=== PATIENT | female | born 1950 | race Caucasian/White ===

== ENCOUNTER 2017-09-14 17:13 | Emergency (ER) | payer OTHER ==
[~2017-09-14 17:13] MED LIST: ALBU6.7H INH; ALPR0.25 PO; AMLO5 PO; ASPI81 PO; BENZ100 PO; MEDR4PAK3 PO; METO50CR PO; OMEP20TA PO; SULCRAFATE PO; ZITH250T PO
[2017-09-14 17:15] VITALS: BP 76/53; PULSE 80; RESP 18; TEMP 97.6; O2SAT 92
--- NOTE | 2017-09-14 17:38 | PD ---
HPI Chief Complaint: abdominal pain and diarrhea Time Seen by Provider: 17:22 Travel History International Travel<30 days: No Contact w/Intl Traveler<30days: No Traveled to known affect area: No History of Present Illness HPI The patient was seen and examined in the presence of the nurse. Patient arrives hypotensive and critically ill. She complains of abdominal pain of one day duration. Location is bilateral lower quadrants. She had a large episode of diarrhea. He became pale and diaphoretic. Paramedics were called. She was brought in hypotensive with a blood pressure of 76 systolic. She denies fever or vomiting but complains of nausea. Denies history of colitis or C. difficile or a lot of recent antibiotics. Symptoms are severe. No alleviating factors. No exacerbating factors. PFSH Past Medical History Blood Disorders: No Heart Rhythm Problems: Yes (SVT) Cancer: Yes (ESOPHAGEAL CA) Cardiovascular Problems: Yes (SVT) Chest Pain: No COPD: Yes Diabetes: No Endocrine: No Gastrointestinal Disorders: No GERD: Yes Glaucoma: No Genitourinary: No Hepatitis: No Hiatal Hernia: No Hypertension: Yes Immune Disorder: No Musculoskeletal: Yes Neurologic: No Psychiatric: No Reproductive: No Respiratory: No Integumentary: No Immunizations Current: Yes Thyroid Disease: No Past Surgical History Abdominal Surgery: Yes (ESOPHGEALECTOMY) Appendectomy: Yes Body Medical Devices: PINS IN L ANKLE Cardiac Surgery: Yes (CARDIAC ABLATION) Section: Yes Ear Surgery: No Endocrine Surgery: No Eye Surgery: No Genitourinary Surgery: No Gynecologic Surgery: Yes (C SECTION,HYSTERECTOMY,EXCISION PHEOCHROMACYTOMA) Hysterectomy: Yes Oral Surgery: No Pacemaker: No Thoracic Surgery: No Other Surgery: Yes (L ANKLE, REMOVAL OF ESOPHAGOUS) Social History Alcohol Use: No Tobacco Use: Yes (09/16 PPD) Substance Use: No Allergies-Medications (Allergen,Severity, Reaction): Coded Allergies: codeine (Unverified Allergy, Severe, nausea and vomiting, 04/28/17) meperidine (Unverified Allergy, Severe, nausea and vomiting , 04/28/17) pt states most all pain meds except lortab diphenhydramine (Unverified Adverse Reaction, Severe, SVT, 04/28/17) PT RELATES ALLERGY TO ANTIHISTAMINES (CAUSES SVT) Reported Meds & Prescriptions Reported Meds & Active Scripts Active Tessalon Perles (Benzonatate) 100 Mg Cap 100 Mg PO TIDPRN Medrol Dosepak (Methylprednisolone) 4 Mg Candelario 4 Mg PO DIRECTED TAKE DIRECTED Zithromax Z-Candelario (Azithromycin) 250 Mg Tab 250 Mg PO DIRECTED 5 Days 500 MG (2 TABLETS) PO ON DAY 1, THEN 250 MG (1 TABLET) PO ON DAYS 2 TO 5. Proventil Hfa (Albuterol Sulfate) 6.7 Gm Aero 1-2 Puff INH Q6HPRN Reported Norvasc (Amlodipine Besylate) 5 Mg Tab 5 Mg PO BID Aspirin 81 Mg Tab 81 Mg PO DAILY Omeprazole 20 Mg Tab 20 Mg PO BID [Sulcrafate] 1 Gm PO QID Metoprolol Succinate Er (Metoprolol Succinate) 50 Mg Tab 50 Mg PO DAILY Alprazolam 0.25 Mg Tab 0.125 Mg PO HSPRN Review of Systems General / Constitutional: No: Fever Eyes: No: Visual changes HENT: No: Headaches Cardiovascular: No: Chest Pain or Discomfort Respiratory: No: Shortness of Breath Gastrointestinal: Positive: Nausea, Diarrhea, Abdominal Pain Genitourinary: No: Dysuria Musculoskeletal: No: Pain Skin: No Rash Neurologic: No: Weakness Psychiatric: No: Depression Endocrine: No: Polydipsia Hematologic/Lymphatic: No: Easy Bruising Physical Exam Narrative GENERAL: Well-nourished, well-developed patient with abdominal pain and nausea and diarrhea . SKIN: Focused skin assessment reveals no rash and nodules. Skin is Warm and dry. HEAD: Atraumatic. Normocephalic. EYES: Pupils equal and round. No scleral icterus. No injection or drainage. ENT: No nasal bleeding or discharge. Mucous membranes pink and moist. NECK: Trachea midline. No JVD. CARDIOVASCULAR: Regular rate and rhythm. No murmur appreciated. RESPIRATORY: No accessory muscle use. Clear to auscultation. Breath sounds equal bilaterally. GASTROINTESTINAL: Abdomen soft, mild bilateral lower quadrant tenderness without rebound or guarding, nondistended. Hepatic and splenic margins not palpable. MUSCULOSKELETAL: No obvious deformities. No clubbing. No cyanosis. No edema. NEUROLOGICAL: Awake and alert. No obvious cranial nerve deficits. Motor grossly within normal limits. Normal speech. PSYCHIATRIC: Appropriate mood and affect; insight and judgment normal. Data Data Last Documented VS Vital Signs Date Time Temp Pulse Resp B/P (MAP) Pulse Ox O2 Delivery O2 Flow Rate FiO2 09/14/17 19:30 101 16 129/64 (85) 95 Room Air 09/14/17 17:15 97.6 Orders Orders Complete Blood Count With Diff (09/14/17 17:31) Comprehensive Metabolic Panel (09/14/17 17:31) Lipase (09/14/17 17:31) Prothrombin Time / Inr (Pt) (09/14/17 17:31) Act Partial Throm Time (Ptt) (09/14/17 17:31) Urinalysis - C+S If Indicated (09/14/17 17:31) Ct Abd/Pel W Iv Contrast(Rout) (09/14/17 17:31) Iv Access Insert/Monitor (09/14/17 17:31) Ecg Monitoring (09/14/17 17:31) Oximetry (09/14/17 17:31) NPO (09/14/17 17:31) Ondansetron Inj (Zofran Inj) (09/14/17 17:45) Sodium Chloride 0.9% Flush (Ns Flush) (09/14/17 17:45) Sodium Chlor 0.9% 1000 Ml Inj (Ns 1000 M (09/14/17 17:45) Sodium Chlor 0.9% 1000 Ml Inj (Ns 1000 M (09/14/17 17:45) Enteric Path (Stool) (09/14/17 17:31) C Diff Toxin Pcr (09/14/17 17:31) Ct Thorax/ Chest W Iv Contrast (09/14/17 ) Sodium Chlor 0.9% 1000 Ml Inj (Ns 1000 M (09/14/17 19:15) Iohexol 350 Inj (Omnipaque 350 Inj) (09/14/17 19:07) Potassium Chloride Eff (K-Lyte Cl Eff) (09/14/17 20:00) Labs Laboratory Tests Test 09/14/17 17:35 White Blood Count 10.5 TH/MM3 Red Blood Count 5.76 MIL/MM3 Hemoglobin 15.8 GM/DL Hematocrit 49.7 % Mean Corpuscular Volume 86.2 FL Mean Corpuscular Hemoglobin 27.3 PG Mean Corpuscular Hemoglobin Concent 31.7 % Red Cell Distribution Width 14.4 % Platelet Count 294 TH/MM3 Mean Platelet Volume 8.4 FL Neutrophils (%) (Auto) 62.3 % Lymphocytes (%) (Auto) 31.5 % Monocytes (%) (Auto) 2.0 % Eosinophils (%) (Auto) 1.9 % Basophils (%) (Auto) 2.3 % Neutrophils # (Auto) 6.6 TH/MM3 Lymphocytes # (Auto) 3.3 TH/MM3 Monocytes # (Auto) 0.2 TH/MM3 Eosinophils # (Auto) 0.2 TH/MM3 Basophils # (Auto) 0.2 TH/MM3 CBC Comment DIFF FINAL Differential Comment Prothrombin Time 10.6 SEC Prothromb Time International Ratio 1.0 RATIO Activated Partial Thromboplast Time 27.8 SEC Blood Urea Nitrogen 20 MG/DL Creatinine 1.00 MG/DL Random Glucose 171 MG/DL Total Protein 6.2 GM/DL Albumin 2.9 GM/DL Calcium Level 8.9 MG/DL Alkaline Phosphatase 103 U/L Aspartate Amino Transf (AST/SGOT) 28 U/L Alanine Aminotransferase (ALT/SGPT) 14 U/L Total Bilirubin 0.3 MG/DL Sodium Level 141 MEQ/L Potassium Level 3.0 MEQ/L Chloride Level 105 MEQ/L Carbon Dioxide Level 23.7 MEQ/L Anion Gap 12 MEQ/L Estimat Glomerular Filtration Rate 55 ML/MIN Lipase 328 U/L MDM Medical Decision Making Medical Screen Exam Complete: Yes Emergency Medical Condition: Yes Medical Record Reviewed: Yes Differential Diagnosis C. difficile , hypovolemic shock, colitis Narrative Course I have reviewed the patient's electronic medical record. Patient arrives critically ill and hypotensive. 18-gauge placed in the left wrist by nursing staff I placed a 20-gauge right external jugular IV I gave her 2 L normal saline IV bolus and will reassess pressure after that CBC shows normal white cell count metabolic profile shows hypokalemia 3.0 which is replaced orally LFT's are normal lipase is normal Coagulation studies are normal CT of abdomen and pelvis and CT of chest were done given her anatomic abnormalities. She had esophagus removed and stomach is stretched up to connect. No emergent findings on either scan. She does have a mild AAA that she knew about and gets follow-up for Stool sample sent for C. difficile toxin and culture of enteric pathogens, these are pending Clinical suspicion for C. difficile is low given normal white count and no antibiotics in the last [address] findings and only one episode of abrupt diarrhea today. She did have an episode of diarrhea one week ago but nothing in the meantime. She is going to call her physician tomorrow for follow-up. She doesn't appointment in 3 days but I advised her to discuss this as soon as she can For the last several hours her blood pressure is been 120 to 130 systolic and she is received a total of 3 L normal saline IV. I think vasovagal episode was part of her hypotensive episode. She feels much better now. No further diarrhea in the ER Critical Care Narrative Aggregate critical care time was 35 minutes. Time to perform other separately billable procedures was not included in the critical care time. My time did not include minutes spent treating any other patients simultaneously or on activities that did not directly contribute to the patient's treatment. The services I provided to this patient were to treat and/or prevent clinically significant deterioration that could result in: Hypovolemic shock, cardiopulmonary arrest, ischemic bowel I provided critical care services requiring my management, as noted below: Chart data review, documentation time, medication orders and management, vital sign assessments/reviewing monitor data, ordering and reviewing lab tests, ordering and interpreting/reviewing x-rays and diagnostic studies, care of the patient and discussion of the patient with the admitting physicians. Diagnosis Primary Impression: Hypotension arterial Qualified Codes: I95.9 - Hypotension, unspecified Additional Impressions: Diarrhea Qualified Codes: R19.7 - Diarrhea, unspecified Hypokalemia Abdominal pain Qualified Codes: R10.9 - Unspecified abdominal pain Additional Instructions: The patient was advised to follow up with their physician and return if they worsen. Med/Other Pt SpecificInfo: Prescription(s) given Scripts Ondansetron Odt (Zofran Odt) 4 Mg Tab 4 MG SL Q6HR Y for Nausea/Vomiting, #12 TAB 0 Refills Prov: Scot Lua MD 09/14/17 Disposition: 01 DISCHARGE HOME Condition: Stable Scot Lua MD Sep 14, 2017 17:38
[2017-09-14] MEDS ORDERED: SODIUM CHLORIDE 0.9% FLUSH 10 ML FLUSH IV FLUSH PRN (17:45)
[2017-09-14] MEDS ORDERED: SODIUM CHLOR 0.9% 1000 ML INJ 1,000 ML IV ONE ×3 (17:45→19:15)
[2017-09-14] MEDS ORDERED: ONDANSETRON HCL 4 MG/2 ML VIAL IVP ONE (17:45)
[2017-09-14 18:00] VITALS: BP 101/57; PULSE 89; RESP 18; O2SAT 93
[2017-09-14 18:03] LABS: AUTOMATED NEUTROPHIL # 6.6 TH/MM3 (1.8-7.7); BASOPHIL # 0.2 TH/MM3 (0-0.2); BASOPHIL % 2.3 % (0.0-2.0); EOSINOPHIL # 0.2 TH/MM3 (0-0.4); EOSINOPHIL % 1.9 % (0.0-4.0); HEMATOCRIT 49.7 % (35.0-46.0); HEMOGLOBIN 15.8 GM/DL (11.6-15.3); LYMPH % 31.5 % (9.0-44.0); LYMPHOCYTE # 3.3 TH/MM3 (1.0-4.8); MEAN CELL VOLUME 86.2 FL (80.0-100.0); MEAN CORPUSCULAR HEMOGLOBIN 27.3 PG (27.0-34.0); MEAN CORPUSCULAR HGB CONC 31.7 % (32.0-36.0); MEAN PLATELET VOLUME 8.4 FL (7.0-11.0); MONOCYTE # 0.2 TH/MM3 (0-0.9); NEUT % 62.3 % (16.0-70.0); PLATELET COUNT 294 TH/MM3 (150-450); RED BLOOD COUNT 5.76 MIL/MM3 (4.00-5.30); RED CELL DISTRIBUTION WIDTH 14.4 % (11.6-17.2); WHITE BLOOD COUNT 10.5 TH/MM3 (4.0-11.0)
[2017-09-14 18:11] LABS: CHLORIDE 105 MEQ/L (98-107); SODIUM (NA) 141 MEQ/L (136-145)
[2017-09-14 18:14] LABS: CALCIUM 8.9 MG/DL (8.5-10.1)
[2017-09-14 18:15] VITALS: RESP 18; O2SAT 92
[2017-09-14 18:15] LABS: ALBUMIN 2.9 GM/DL (3.4-5.0); BICARBONATE 23.7 MEQ/L (21.0-32.0); BLOOD UREA NITROGEN 20 MG/DL (7-18); GLUCOSE,RANDOM 171 MG/DL (74-106); LIPASE 328 U/L (73-393)
[2017-09-14 18:16] LABS: PROTHROMBIN TIME - PATIENT 10.6 SEC (9.8-11.6)
[2017-09-14 18:18] LABS: ALT (GPT) 14 U/L (10-53); AST (GOT) 28 U/L (15-37); GLOMERULAR FILTRATION RATE 55 ML/MIN (>89)
[2017-09-14 18:19] LABS: TOTAL BILIRUBIN ADULT 0.3 MG/DL (0.2-1.0); TOTAL PROTEIN 6.2 GM/DL (6.4-8.2)
[2017-09-14 18:21] LABS: ALKALINE PHOSPHATASE 103 U/L (45-117)
[2017-09-14 18:51] VITALS: BP 116/65; PULSE 98
[2017-09-14] MEDS ORDERED: IOHEXOL 350 MG/ML 10 ML VIAL (for RAD DIAG) IVCONTRAST ONE (19:07)
[2017-09-14 19:30] VITALS: BP 129/64; PULSE 101; RESP 16; O2SAT 95
--- NOTE | 2017-09-14 19:31 | RADRPT ---
EXAM DATE/TIME: 09/14/2017 18:30 [facility] COMPARISON: No previous studies available for comparison. INDICATIONS : Diffuse abdominal pain and diarrhea. IV CONTRAST: 95 cc Omnipaque 350 (iohexol) IV ; Cumulative dose for multiple exams. RADIATION DOSE: 5.37 CTDIvol (mGy) MEDICAL HISTORY : Cardiovascular disease. Hypertension. Carcinoma, esophageal. SURGICAL HISTORY : Appendectomy. Hysterectomy.Gastric pullup. Cardiac ablation. ENCOUNTER: Initial ACUITY: 1 day PAIN SCALE: 5/10 LOCATION: chest TECHNIQUE: Volumetric scanning of the chest was performed. Using automated exposure control and adjustment of t he mA and/or kV according to patient size, radiation dose was kept as low as reasonably achievable to obtain optimal diagnostic quality images. DICOM format image data is available electronically for review and comparison. Follow-up recommendations for detected pulmonary nodules are based at a minimum on nodule size and pa tient risk factors according to Fleischner Society Guidelines. FINDINGS: The lungs are clear without infiltrate, nodule, or mass except for slight scarring in both lungs. Th ere is no pleural effusion. No appreciable pathological adenopathy is seen within the mediastinum. T here are findings in the upper abdomen discussed on the patient's CT abdomen. There is evidence for g astric pullup. CONCLUSION: Chronic and post surgical changes. Devyn Wright MD on September 14, 2017 at 19:13 Board Certified Radiologist. This report was verified electronically.
--- NOTE | 2017-09-14 19:34 | RADRPT ---
EXAM DATE/TIME: 09/14/2017 18:30 [facility] COMPARISON: No previous studies available for comparison. INDICATIONS : Diffuse abdominal pain, diarrhea and dizziness. IV CONTRAST: 95 cc Omnipaque 350 (iohexol) IV ; Cumulative dose for multiple exams. ORAL CONTRAST: No oral contrast ingested. RADIATION DOSE: 9.11 CTDIvol (mGy) MEDICAL HISTORY : Cardiovascular disease. Hypertension. Carcinoma, esophageal. SURGICAL HISTORY : Appendectomy. Hysterectomy.Gastric pullup. Cardiac ablation. ENCOUNTER: Initial ACUITY: 1 day PAIN SCALE: 6/10 LOCATION: abdomen TECHNIQUE: Volumetric scanning of the abdomen and pelvis was performed. Using automated exposure control and adjustment of the mA and/or kV according to patient size, radiation dose was kept as low as reasonably achievable to obtain optimal diagnostic quality images. DICOM format image data is av ailable electronically for review and comparison. FINDINGS: CT Abdomen: The liver, spleen, pancreas, adrenals are unremarkable. There are simple cysts in both ki dneys the largest on the right measures 7.5 cm the There is no evidence for any appreciable pathologi stacy adenopathy, free fluid, or bowel obstruction. AAA is present measures 3.3 x 3.9 cm in AP and tra nsverse diameters with significant atherosclerotic plaquing of aorta. CT pelvis: There is no evidence for mass, abscess formation, or any significant adenopathy within the pelvis. CONCLUSION: AAA and chronic changes as above. Devyn Wright MD on September 14, 2017 at 19:29 Board Certified Radiologist. This report was verified electronically.
[2017-09-14] MEDS ORDERED: POTASSIUM CHLORIDE 25 MEQ EFFERVESCENT TAB PO ONE (20:00)
[2017-09-14] MEDS ORDERED: ZOFR4TAB3 SL (20:45)
== END 2017-09-14 21:26 | disposition home or self-care (01) ==
LOC: PHED 17:13
DX: I95.9 Hypotension, unspecified (principal); R19.7 Diarrhea, unspecified; E87.6 Hypokalemia; R10.30 Lower abdominal pain, unspecified; R11.0 Nausea; K21.9 Gastro-esophageal reflux disease without esophagitis; I10 Essential (primary) hypertension; J44.9 Chronic obstructive pulmonary disease, unspecified; F17.200 Nicotine dependence, unspecified, uncomplicated; Z86.79 Personal history of other diseases of the circulatory system; Z85.01 Personal history of malignant neoplasm of esophagus; Z87.39 Personal history of other diseases of the musculoskeletal system and connective tissue
CPT/HCPCS: 71260; 74177; 80053; 83690; 85025; 85610; 85730; 87493; 87506; 96361; 96374; 99291; J2405; J7030; Q9967